=== PATIENT | male | born 1945 | race Caucasian/White ===

== ENCOUNTER 2021-12-27 13:02 | Emergency (ER) | payer MEDICARE ==
[2021-12-27] MEDS ORDERED: ALBUTEROL HFA INHALER INHALATION STA (13:47)
[2021-12-27 14:00] VITALS: RESP 18
--- NOTE | 2021-12-27 14:03 | ED ---
General Adult HPI - General Stated complaint: Covid+/infusion Time Seen by Provider: 12/27/21 13:40 Source: patient, RN notes reviewed, old records reviewed - History of Present Illness Initial comments: This is a 76-year-old male who presents to the emergency department with symptoms since Sunday. Patient states she's had little bit of a cough he is a smoker. Patient states he tested positive for COVID. Patient states he did not get the COVID vaccine but he would like to infusion a monoclonal antibody. Patient denies any chest pain patient denies any fever chills. Patient denies any difficulty breathing shortness of breath. Patient states he has body aches and some diarrhea. - Related Data Home Medications Medication Instructions Recorded Confirmed Ascorbic Acid [Vitamin C] 1,000 mg PO DAILY 12/27/21 12/27/21 Cholecalciferol [Vitamin D3 (25 25 mcg PO DAILY 12/27/21 12/27/21 Mcg = 1000 Iu)] Levothyroxine Sodium 150 mcg PO DAILY 12/27/21 12/27/21 Nabumetone [Relafen] 750 mg PO PC-BID 12/27/21 12/27/21 Zinc 50 mg PO DAILY 12/27/21 12/27/21 amLODIPine [Norvasc] 7.5 mg PO DAILY 12/27/21 12/27/21 Previous Rx's Medication Instructions Recorded Dexamethasone [Decadron] 6 mg PO DAILY #7 tablet 12/27/21 Allergies Allergy/AdvReac Type Severity Reaction Status Date / Time No Known Allergies Allergy Verified 12/27/21 15:24 Review of Systems ROS Statement: Those systems with pertinent positive or pertinent negative responses have been documented in the HPI. ROS Other: All systems not noted in ROS Statement are negative. General Exam - General Exam Comments Initial Comments: GENERAL: Patient is well-developed and well-nourished. Patient is nontoxic and well- hydrated and is in mild distress. ENT: Neck is soft and supple. No significant lymphadenopathy is noted. Oropharynx is clear. Moist mucous membranes. Neck has full range of motion without eliciting any pain. EYES: The sclera were anicteric and conjunctiva were pink and moist. Extraocular movements were intact and pupils were equal round and reactive to light. Eyelids were unremarkable. PULMONARY: Unlabored respirations. Good breath sounds bilaterally. Patient has some expiratory wheezing diffusely CARDIOVASCULAR: There is a regular rate and rhythm without any murmurs gallops or rubs. ABDOMEN: Soft and nontender with normal bowel sounds. SKIN: Skin is clear with no lesions or rashes and otherwise unremarkable. NEUROLOGIC: Patient is alert and oriented x3. Cranial nerves II through XII are grossly intact. Motor and sensory are also intact. Normal speech, volume and content. Symmetrical smile. MUSCULOSKELETAL: Normal extremities with adequate strength and full range of motion. LYMPHATICS: No significant lymphadenopathy is noted PSYCHIATRIC: Normal psychiatric evaluation. Course Vital Signs 12/27/21 13:57 Temperature 98.8 F Pulse Rate 81 Respiratory 18 Rate Blood Pressure 121/82 O2 Sat by Pulse 96 Oximetry Medical Decision Making - Medical Decision Making X-ray shows no sign of pneumonia. Patient received monoclonal antibodies. I went back and reevaluated the patient he was having no symptoms or shortness of breath at this time. - Lab Data Lab Results 12/27/21 Range/Units 14:01 Coronavirus (PCR) Detected A (Not Detectd) Disposition Clinical Impression: COVID Disposition: HOME SELF-CARE Condition: Good Instructions (If sedation given, give patient instructions): COVID-19 (Coronavirus Disease 2019) (ED) Prescriptions: Dexamethasone [Decadron] 6 mg PO DAILY #7 tablet Is patient prescribed a controlled substance at d/c from ED?: No Referrals: Kamron Benitez DO [Primary Care Provider] - 1-2 days Time of Disposition: 16:10
--- NOTE | 2021-12-27 14:41 | XR ---
EXAMINATION TYPE: XR chest 2V DATE OF EXAM: 12/27/2021 COMPARISON: NONE TECHNIQUE: PA and lateral views submitted. HISTORY: Shortness of breath FINDINGS: Hyperinflation suggests COPD. No pleural effusion or pneumothorax. The heart is enlarged. There are d egenerative changes line. Subsegmental changes in the left retrocardiac region. IMPRESSION: 1. 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 Atelectasis favored over pneumonia correlate clinically for confirmation.
[2021-12-27] MEDS ORDERED: BEBTELOVIMAB (EUA) 175 MG/2 ML VIAL IV ONE (15:30)
[2021-12-27 17:06] VITALS: BP 133/83; PULSE 78; TEMP 98.4
== END 2021-12-27 17:08 | disposition home or self-care (01) ==
LOC: EC 13:02
DX: U07.1 COVID-19 (principal)
CPT/HCPCS: 99284; 94640; 87635; 71046; Q0222